=== PATIENT | male | born 1965 | race American Indian/Alaskan Native ===

== ENCOUNTER 2016-11-28 12:08 | Observation (INO) | payer MEDICAID, OTHER ==
[2016-11-28 12:11] VITALS: BMI 26.6
--- NOTE | 2016-11-28 12:26 | ED PDOC ---
Arrival/HPI - General Time Seen by Provider: 11/28/16 12:12 Historian: Patient, EMS - History of Present Illness Narrative History of Present Illness (Text): 11/28/16 12:12 Wesley Choi is a 51 year old male, who past medical history includes diabetes on insluin and hypertension, who presents to the emergency department complaining of a syncopal episode and hyperglycemia today. According to EMS, employees say that patient began to feel faint and possible pass out around 07: 30 this morning. Patient eventually became completely unresponsive. EMS was called and gave patient Narcan by BLS en route to hospital. Patient was also noted to be diaphoretic with a finger stick of 26 and was given an AMP of D50. Patient states that took his regular dose of insulin this morning, ate breakfast , and remembers going to work. However, patient does no recall any further events at work. At present, patient feels cold but denies any focal weakness, fevers, headaches, chest pain, or any other complaint at this time. Patient notes that [place] is from [place] of town. Time/Duration: 4-6 hours Symptom Onset: Gradual Symptom Course: Improving Severity Level: Mild Activities at Onset: Light Context: Work Past Medical History - Provider Review Nursing Documentation Reviewed: Yes - Cardiac Hx Hypertension: Yes - Psychiatric Hx Substance Use: No - Suicidal Assessment Feels Threatened In Home Enviroment: No Family/Social History - Physician Review Nursing Documentation Reviewed: Yes Family/Social History: No Known Family HX Smoking Status: Never Smoked Hx Alcohol Use: No Hx Substance Use: No Allergies/Home Meds Allergies/Adverse Reactions: Allergies Penicillins Allergy (Verified 11/28/16 12:10) RASH Home Medications: Home Meds Medication Instructions Recorded Confirmed Insulin Human (NPH)/Regular 0 units SC BID 11/28/16 11/28/16 [Novolin 70/30 (70/30 units/ml) 10 ml] Metoprolol Tartrate [Lopressor] 25 mg PO DAILY 11/28/16 11/28/16 Review of Systems - Review of Systems Constitutional: Other (hyperglycemia). absent: Fevers, Night Sweats Eyes: absent: Vision Changes ENT: absent: Hearing Changes Respiratory: absent: SOB Cardiovascular: Syncope. absent: Chest Pain Gastrointestinal: absent: Abdominal Pain Genitourinary Male: absent: Urinary Output Changes Musculoskeletal: absent: Back Pain, Neck Pain Skin: absent: Rash Neurological: absent: Headache Endocrine: absent: Diaphoresis Hemo/Lymphatic: absent: Adenopathy Psychiatric: absent: Anxiety Physical Exam Vital Signs Temp Pulse Resp BP Pulse Ox 11/28/16 16:08 93 H 16 149/75 98 11/28/16 14:57 98.4 F 89 16 125/69 98 11/28/16 14:00 97.7 F 107 H 21 159/98 H 95 11/28/16 12:13 97.7 F 11/28/16 12:09 95 F L 94 H 19 173/112 H 98 Temperature: Hypothermic Blood Pressure: Hypertensive Pulse: Tachycardic Respiratory Rate: Normal Appearance: Positive for: Ill-Appearing Pain Distress: None Mental Status: Positive for: Alert and Oriented X 3 Finger Stick Blood Glucose: 131 - Systems Exam Head: Present: Atraumatic, Normocephalic Pupils: Present: PERRL Conjunctiva: Present: Normal Mouth: Present: Moist Mucous Membranes Pharnyx: Present: Normal. No: ERYTHEMA, EXUDATE Neck: Present: Normal Range of Motion Respiratory/Chest: Present: Clear to Auscultation, Good Air Exchange. No: Respiratory Distress, Accessory Muscle Use Cardiovascular: Present: Regular Rate and Rhythm, Normal S1, S2. No: Murmurs Abdomen: Present: Normal Bowel Sounds. No: Tenderness, Distention, Peritoneal Signs Back: Present: Normal Inspection Upper Extremity: Present: Normal Inspection. No: Cyanosis, Edema Lower Extremity: Present: Normal Inspection. No: Edema Neurological: Present: GCS=15, CN II-XII Intact, Speech Normal Skin: Present: Warm, Normal Color, Diaphoretic. No: Rashes Psychiatric: Present: Alert, Oriented x 3, Normal Insight, Normal Concentration Medical Decision Making ED Course and Treatment: 11/28/16 12:12 Impression: 51 year old male complaining of a syncopal episode and hyperglycemia today. Differential Diagnosis included but are not limited to: Insulin overdose vs renal insufficiency Plan: -- EKG -- Chest X-ray -- Brain CT w/o contrast -- Labs -- Reassess and disposition Prior Visits: Notes and results from previous visits were reviewed. Patient last seen in the ED on 08/15/14 for dizziness and hypotension that day. Patient was discharged home. Progress Notes: EKG: Ordered, reviewed, and independently interpreted the EKG. Rate : 95 BPM Rhythm : NSR Interpretation : Normal intervals. Normal Brant. Non-specific T-wave abnormality. 11/28/16 18:25 Patient with noted history s/p hypoglycemic episode. He was seen observed here in the ED and initially maintained his glucose with eating but then stopped eating for about 2 hours and glucose went back down to 71 and he became lethargic. Will give additional amp of D50. Patient also notes that this is his third visit to an ER this week for hypoglycemia. Given multiple ED visits and recurrence of hypoglycemia here, will need observe further for refractory hypoglycemia. Spoke with Dr. Heredia who said to convey case to resident Harpal for night attending. - Lab Interpretations Lab Results: 11/28/16 12:47 11/28/16 12:47 Lab Results 11/28/16 16:05: Urine Color Yellow, Urine Appearance Clear, Urine pH 6.0, Ur Specific [place] 1.015, Urine Protein Negative, Urine Glucose (UA) 100 H, Urine Ketones Negative, Urine Blood Negative, Urine Nitrate Negative, Urine Bilirubin Negative, Urine Urobilinogen 0.2, Ur Leukocyte Esterase Negative 11/28/16 15:36: POC Glucose (mg/dL) 123 H 11/28/16 14:14: POC Glucose (mg/dL) 154 H 11/28/16 12:47: Sodium 140, Potassium 4.2, Chloride 103, Carbon Dioxide 29, Anion Gap 12, BUN 16, Creatinine 0.8, Est GFR ( Amer) > 60, Est GFR (Non- Af Amer) > 60, Random Glucose 93, Calcium 9.1, Magnesium 1.9, Total Bilirubin 0.4, AST 27, ALT 36, Alkaline Phosphatase 109, Lactate Dehydrogenase 649, Total Creatine Kinase 141, Troponin I < 0.01, Total Protein 7.8, Albumin 4.2, Globulin 3.6, Albumin/Globulin Ratio 1.2, Lipase 68 11/28/16 12:47: WBC 7.1, RBC 4.23, Hgb 12.3 L, Hct 35.6 L, MCV 84.2, MCH 29.1, MCHC 34.6, RDW 12.8, Plt Count 309, MPV 10.1, Gran % 73.1 H, Lymph % (Auto) 21.8 L, [place] % (Auto) 3.8, Eos % (Auto) 1.0 L, Baso % (Auto) 0.3, Gran # 5.22, Lymph # 1.6, [place] # 0.3, Eos # 0.1, Baso # 0.02 I have reviewed the lab results: Yes - RAD Interpretation Radiology Orders: 11/28/16 12:13 Brain [HEAD W/O CONTRAST] [CT] Stat CHEST TWO VIEWS (PA/LAT) [RAD] Stat - Medication Orders Current Medication Orders: Dextrose (Dextrose 50% Inj) 50 ml IVP STAT STA Stop: 11/28/16 18:24 - Scribe Statement The provider has reviewed the documentation as recorded by the John Brandt Provider Scribe Attestation: All medical record entries made by the Scribe were at my direction and personally dictated by me. I have reviewed the chart and agree that the record accurately reflects my personal performance of the history, physical exam, medical decision making, and the department course for this patient. I have also personally directed, reviewed, and agree with the discharge instructions and disposition. Disposition/Present on Arrival - Present on Arrival Any Indicators Present on Arrival: No - Disposition Have Diagnosis and Disposition been Completed?: Yes Diagnosis: Hypoglycemia Disposition: HOSPITALIZED Disposition Time: 18:15 Patient Plan: Observation, Telemetry Condition: FAIR
[2016-11-28 12:51] LABS: BASO # 0.02 K/mm3 (0.0-2.0); BASO % 0.3 % (0.0-3.0); EOS # 0.1 (0.0-0.7); GRAN # 5.22 (1.4-6.5); GRAN % 73.1 % (50.0-68.0); HEMOGLOBIN 12.3 gm/dL (14.0-18.0); LYMPH # 1.6 (1.2-3.4); LYMPH % 21.8 % (22.0-35.0); MEAN CELL VOLUME 84.2 fL (80.0-105.0); MEAN CORPUSCULAR HEMOGLOBIN 29.1 pg (25.0-35.0); MEAN CORPUSCULAR HGB CONC 34.6 g/dl (31.0-37.0); MEAN PLATELET VOLUME 10.1 fl (7.0-11.0); MONO # 0.3 (0.1-0.6); MONO % 3.8 % (1.0-6.0); PLATELET COUNT 309 10^3/uL (120.0-450.0); RBC 4.23 10^6/uL (3.5-6.1); RED CELL DISTRIBUTION WIDTH 12.8 % (11.5-14.5); WHITE BLOOD COUNT 7.1 10^3/ul (4.5-11.0)
[2016-11-28 13:01] LABS: ALB/GLOB RATIO 1.2 (1.1-1.8); ALBUMIN 4.2 g/dL (3.0-4.8); ALT/SGPT 36 U/L (7-56); AST/SGOT 27 U/L (15-59); BLOOD UREA NITROGEN 16 mg/dL (7-21); CALCIUM 9.1 mg/dL (8.4-10.5); GFR AFRICAN-AMERICAN > 60; GFR NON-AFRICAN AMERICAN > 60; LIPASE 68 U/L (23-300); MAGNESIUM 1.9 mg/dL (1.7-2.2)
[2016-11-28 13:14] LABS: TROPONIN I < 0.01 ng/mL
--- NOTE | 2016-11-28 13:48 | CT ---
PROCEDURE: CT HEAD WITHOUT CONTRAST. HISTORY: altms COMPARISON: None available. TECHNIQUE: Axial computed tomography images were obtained through the head/brain without intravenous contrast. Radiation dose: Total exam DLP = 690 mGy-cm. This CT exam was performed using one or more of the following dose reduction techniques: Automated exposure control, adjustment of the mA and/or kV according to patient size, and/or use of iterative reconstruction technique. FINDINGS: HEMORRHAGE: No intracranial hemorrhage. BRAIN: No mass effect or edema. The overall mullen and white-matter density above and below the tentorium appears within normal limits throughout, including through the brainstem. There is no suspicious extra-axial fluid collection identified. VENTRICLES: Unremarkable. No hydrocephalus. CALVARIUM: Unremarkable. PARANASAL SINUSES: Unremarkable as visualized. No significant inflammatory changes. MASTOID AIR CELLS: Unremarkable as visualized. No inflammatory changes. OTHER FINDINGS: None. IMPRESSION: Normal CT of the Head. Follow-up CT or MRI may be considered symptoms persist or worsen or as otherwise may be indicated.
--- NOTE | 2016-11-28 15:18 | RAD ---
HISTORY: hypoglycemia COMPARISON: No prior. TECHNIQUE: Chest PA and lateral FINDINGS: LUNGS: No active pulmonary disease. PLEURA: No significant pleural effusion identified. No pneumothorax apparent. CARDIOVASCULAR: Normal. OSSEOUS STRUCTURES: No significant abnormalities. VISUALIZED UPPER ABDOMEN: Normal. OTHER FINDINGS: None. IMPRESSION: No active disease.
[2016-11-28 16:26] LABS: URINE BILIRUBIN NEGATIVE (NEGATIVE); URINE BLOOD NEGATIVE (NEGATIVE); URINE GLUCOSE (UA) 100 mg/dL (NEGATIVE); URINE LEUKOCYTE ESTERASE NEGATIVE Leu/uL (NEGATIVE); URINE NITRATE NEGATIVE (NEGATIVE); URINE UROBILINOGEN 0.2 E.U./dL (<1 E.U./dL)
[2016-11-28 16:28] LABS: URINE APPEARANCE CLEAR (CLEAR); URINE COLOR YELLOW (YELLOW); URINE PROTEIN NEGATIVE mg/dL (<30 mg/dL)
[2016-11-28] MEDS ORDERED: Dextrose 50% SYRINGE Inj (50 ml) IVP STA (18:23)
--- NOTE | 2016-11-28 19:45 | CP.PCM.HP ---
<JOSE CARTER - Last Filed: 11/29/16 00:08> History of Present Illness - History of Present Illness History of Present Illness: CC: Syncope due to hypoglycemia Pt is 51 yo M with PMHx of HTN and DM presents with cc syncopal episode with a witnessed fall due to hypoglycemia. Pt states that he has been on a regimen of Novolog 70/30 30 units in the AM and 17 units in the PM for the last few months and is consistent, but has not followed up with a PMD due to recently moving here. Pt states he took his insulin as scheduled this morning around 4 am and ate breakfast, but might have eaten less than he normally does. He reports feeling diaphoretic and dizzy at work this morning around 10 am when the syncopal event happened. The pt lost consciousness and fell which was witnessed by his co-workers. They stated that he was foaming at the mouth. Pt reports 3 other instances in the past week where he got dizzy and felt as if he had low blood sugar, but did not lose consciousness. Pt was transported by EMS and was found to have a blood glucose of 26, in which he was given one amp of D50. Now in the ED, pt recieved another amp of D50, which borught his glucose to 154. Pt is currently c/o fatigue and diffuse body aches. Pt admits to numbness in his left foot, in which there is an ulcer on his left great toe. Pt denies paresthesia of the right foot. Pt denied CP, SOB, n/v/d, chills, BERNABE, or changes in vision. PMHx: DM, HTN Surg: Left cataract surgery FHx: DM, pancreatic CA All: Penicillin (Hives) SH: Denied EtOH, tobacco, or illicit drug use Medications: reviewed and as per chart Present on Admission - Present on Admission Any Indicators Present on Admission: No Review of Systems - Review of Systems All systems: reviewed and no additional remarkable complaints except (12 point ROS negative other than what is stated in HPI) Past Patient History - Past Social History Smoking Status: Never Smoked - CARDIAC Hx Hypertension: Yes - ENDOCRINE/METABOLIC Hx Endocrine Disorders: Yes Hx Diabetes Mellitus Type 1: Yes - PSYCHIATRIC Hx Substance Use: No - SURGICAL HISTORY Hx Surgeries: No Meds Allergies/Adverse Reactions: Allergies Allergy/AdvReac Type Severity Reaction Status Date / Time Penicillins Allergy RASH Verified 11/28/16 12:10 Physical Exam - Constitutional Appears: No Acute Distress Additional comments: sleepy, lethargic - Head Exam Head Exam: ATRAUMATIC, NORMOCEPHALIC - Eye Exam Eye Exam: EOMI, PERRL Pupil Exam: PERRL - ENT Exam ENT Exam: Mucous Membranes Moist - Neck Exam Neck exam: Positive for: Full Rom. Negative for: Lymphadenopathy, Tenderness, Thyromegaly - Respiratory Exam Respiratory Exam: Clear to Auscultation Bilateral. absent: Rales, Rhonchi, Wheezes - Cardiovascular Exam Cardiovascular Exam: Tachycardia, +S1, +S2. absent: Diastolic murmur, Gallop, Rubs, Systolic Murmur - GI/Abdominal Exam GI & Abdominal Exam: Guarding, Normal Bowel Sounds, Tenderness. absent: Distended, Rebound, Soft - Extremities Exam Extremities exam: Negative for: pedal edema, tenderness Additional comments: crusted ulcer noted on left distal portion of hallux - Neurological Exam Neurological exam: Alert, Motor Sensory Deficit, Oriented x3 Additional comments: decreased sensation left foot - Psychiatric Exam Psychiatric exam: Normal Affect, Normal Mood - Skin Skin Exam: Dry, Intact, Normal Color, Warm Results - Vital Signs Recent Vital Signs: Last Vital Signs Temp 98.4 F 11/28/16 14:57 Pulse 93 H 11/28/16 16:08 Resp 16 11/28/16 16:08 BP 149/75 11/28/16 16:08 Pulse Ox 98 11/28/16 16:08 - Labs Result Diagrams: 11/28/16 12:47 11/28/16 12:47 Assessment & Plan - Assessment and Plan (Free Text) Assessment: 51 yo M with PMHx of IDDM and HTN will be admitted for evaluation and treatment of syncopal event/seizure 2/2 hypoglycemia. 1. Hypoglycemia - Diffuse body aches likely due to seizure 2/2 hypoglycemia - Accucheck Q4H - Maintain glucose > 70 - Hold insulin until breakfast, decrease insulin dose to 20 u in AM and 14 u in PM with meals - Carb consistent diet 2. HTN - Cont lopressor 3. GI/DVT PPx - Protonix - SCDs Pt seen and discussed in detail with Dr. Bradley. <Erickson Bradley P - Last Filed: 11/29/16 06:19> Results - Vital Signs Recent Vital Signs: Last Vital Signs Temp 98.8 F 11/29/16 05:56 Pulse 85 11/29/16 05:56 Resp 18 11/29/16 05:56 BP 131/81 11/29/16 05:56 Pulse Ox 97 11/29/16 05:56 - Labs Result Diagrams: 11/28/16 12:47 11/28/16 12:47 Labs: Laboratory Results - last 24 hr 11/28/16 21:42 POC Glucose (mg/dL) 87 Attending/Attestation - Attestation I have personally seen and examined this patient.: Yes I have fully participated in the care of the patient.: Yes I have reviewed all pertinent clinical information: Yes Notes (Text): 11/29/16 06:15 Recent frequent episodes of hypoglycemia with this one with seizure, long time unchanged dose of 70/30 insulin 30-0-17, unchanged eating habits according to patient hence suspected hypoglycemia from slow gastric empting, reduced meals and increased unpredictable daily physical activity at work. Patient also has right great toe tip ulcer due to reduced sensation suggesting neuropathy. Plan Counselled about hypoglycemia Reduced dose of insulin 20-0-14 Patient to carry candy bar all the time Frequent monitoring IVF due to seizure, and fluid loss during sweating See plans for detail.
--- NOTE | 2016-11-28 20:55 | CARD ---
APPROVED REPORT EKG Measurement Heart [id number] <Conclusion> Normal sinus rhythm Nonspecific T wave abnormality Abnormal ECG
[2016-11-28] MEDS: Sodium Chloride 0.9% 1,000 ML IV SCH (21:33)
[2016-11-29] MEDS: Sodium Chloride 0.9% 1,000 ML IV SCH ×3 (04:03→21:11)
[2016-11-29] MEDS: Insulin Human NPH/Reg 70/30 Vial(3 ml) SC SCH (06:46)
[2016-11-29 07:44] LABS: HEMOGLOBIN 10.7 gm/dL (14.0-18.0); MEAN CORPUSCULAR HEMOGLOBIN 28.4 pg (25.0-35.0); MEAN CORPUSCULAR HGB CONC 34.2 g/dl (31.0-37.0); MEAN PLATELET VOLUME 9.8 fl (7.0-11.0); RBC 3.77 10^6/uL (3.5-6.1); RED CELL DISTRIBUTION WIDTH 12.6 % (11.5-14.5); WHITE BLOOD COUNT 13.5 10^3/ul (4.5-11.0)
[2016-11-29] MEDS ORDERED: Barium Sulfate Susp 2.1% w/v, 2.0% w/w 450 mL Bottle PO ONE (07:45)
[2016-11-29 08:01] LABS: ALB/GLOB RATIO 1.1 (1.1-1.8); ALBUMIN 3.3 g/dL (3.0-4.8); ALT/SGPT 30 U/L (7-56); AST/SGOT 21 U/L (15-59); BLOOD UREA NITROGEN 20 mg/dL (7-21); CALCIUM 8.5 mg/dL (8.4-10.5); GFR AFRICAN-AMERICAN > 60; GFR NON-AFRICAN AMERICAN > 60; MAGNESIUM 1.8 mg/dL (1.7-2.2)
[2016-11-29] MEDS: Insulin Reg-MEDIUM-Coverage SC SCH ×4 (08:42→22:11)
[2016-11-29] MEDS ORDERED: Sodium Chloride 0.9% 500 ML IV STA (11:57)
--- NOTE | 2016-11-29 12:45 | CT ---
PROCEDURE: CT Abdomen and Pelvis without intravenous contrast HISTORY: distended abdomen, r/o henia COMPARISON: None. TECHNIQUE: Technique. Contrast Dose: Radiation dose: Total exam DLP = 226 mGy-cm. This CT exam was performed using one or more of the following dose reduction techniques: Automated exposure control, adjustment of the mA and/or kV according to patient size, and/or use of iterative reconstruction technique. FINDINGS: LOWER THORAX: Bibasilar infiltrates are present. There is a small pericardial effusion. LIVER: Unremarkable. No gross lesion or ductal dilatation. GALLBLADDER AND BILE DUCTS: Unremarkable. PANCREAS: Unremarkable. No gross lesion or ductal dilatation. SPLEEN: Unremarkable. ADRENALS: Unremarkable. No mass. KIDNEYS AND URETERS: Dilatation of the proximal left ureter without evidence of obstructive calculus. No significant caliectasis. VASCULATURE: Unremarkable. No aortic aneurysm. BOWEL: Unremarkable. No obstruction. No gross mural thickening. APPENDIX: Unremarkable. Normal appendix. PERITONEUM: Unremarkable. No free fluid. No free air. LYMPH NODES: Unremarkable. No enlarged lymph nodes. BLADDER: Unremarkable. REPRODUCTIVE: Unremarkable. BONES: No acute fracture. OTHER FINDINGS: None. IMPRESSION: Dilatation of the proximal left ureter without evidence of obstructive calculus. No significant caliectasis.Bibasilar infiltrates are present. There is a small pericardial effusion.
[2016-11-29] MEDS ORDERED: Insulin Human NPH/Reg 70/30 Vial(3 ml) SC SCH (16:30)
[2016-11-29] MEDS ORDERED: Dextrose 50% SYRINGE Inj (50 ml) IVP STA (22:04)
[2016-11-30] MEDS: Sodium Chloride 0.9% 1,000 ML IV SCH (05:25)
[2016-11-30 06:21] VITALS: O2SAT 99
[2016-11-30 07:07] LABS: HEMOGLOBIN 10.7 gm/dL (14.0-18.0); MEAN CELL VOLUME 82.9 fL (80.0-105.0); MEAN CORPUSCULAR HEMOGLOBIN 28.6 pg (25.0-35.0); MEAN CORPUSCULAR HGB CONC 34.5 g/dl (31.0-37.0); MEAN PLATELET VOLUME 9.9 fl (7.0-11.0); RBC 3.74 10^6/uL (3.5-6.1); RED CELL DISTRIBUTION WIDTH 12.5 % (11.5-14.5); WHITE BLOOD COUNT 9.6 10^3/ul (4.5-11.0)
[2016-11-30 07:16] LABS: ALBUMIN 3.1 g/dL (3.0-4.8); ALT/SGPT 28 U/L (7-56); AST/SGOT 17 U/L (15-59); BLOOD UREA NITROGEN 14 mg/dL (7-21); CALCIUM 8.9 mg/dL (8.4-10.5); GFR AFRICAN-AMERICAN > 60; GFR NON-AFRICAN AMERICAN > 60
[2016-11-30] MEDS: Insulin Reg-MEDIUM-Coverage SC SCH (08:31)
[2016-11-30] MEDS: Insulin Human NPH/Reg 70/30 Vial(3 ml) SC SCH (08:31)
--- NOTE | 2016-11-30 11:04 | US ---
PROCEDURE: Ultrasound of the Bladder HISTORY: r/o urinary retention COMPARISON: Abdomen and pelvis CT 11/21/2016. TECHNIQUE: Sonographic evaluation of the bladder was performed. FINDINGS: Urinary bladder is distended that without significant mural thickening appreciated. No focal mural nodularity or urolithiasis is associated with the lumen of the urinary bladder. There is no demonstrated urinary bladder diverticulum. No free fluid in pelvis. Prevoid Volume: 464 cc. Post void residual: 129 cc. IMPRESSION: Nonfocal urinary bladder ultrasound examination. 28 percent postvoid residual as discussed above. Further clinical correlation advised.
[2016-11-30 12:22] VITALS: TEMP 98.3
[2016-11-30 13:05] VITALS: BP 136/85; PULSE 69; RESP 18
--- NOTE | 2016-11-30 17:36 | CP.PCM.DIS ---
<Andrew Bowser - Last Filed: 11/30/16 17:21> Provider - Provider Date of Admission: 11/28/16 18:21 Attending physician: Mae Heredia MD Time Spent in preparation of Discharge (in minutes): 45 Diagnosis - Discharge Diagnosis (1) Hypoglycemia Status: Resolved Priority: Low (2) Orthostatic hypotension Status: Resolved Priority: Low Hospital Course - Lab Results Lab Results: Most Recent Lab Values WBC 9.6 10^3/ul (4.5-11.0) D 11/30/16 06:30 RBC 3.74 10^6/uL (3.5-6.1) 11/30/16 06:30 Hgb 10.7 gm/dL (14.0-18.0) L 11/30/16 06:30 Hct 31.0 % (42.0-52.0) L 11/30/16 06:30 MCV 82.9 fL (80.0-105.0) 11/30/16 06:30 MCH 28.6 pg (25.0-35.0) 11/30/16 06:30 MCHC 34.5 g/dl (31.0-37.0) 11/30/16 06:30 RDW 12.5 % (11.5-14.5) 11/30/16 06:30 Plt Count 284 10^3/uL (120.0-450.0) 11/30/16 06:30 MPV 9.9 fl (7.0-11.0) 11/30/16 06:30 Gran % 73.1 % (50.0-68.0) H 11/28/16 12:47 Lymph % (Auto) 21.8 % (22.0-35.0) L 11/28/16 12:47 Benson % (Auto) 3.8 % (1.0-6.0) 11/28/16 12:47 Eos % (Auto) 1.0 % (1.5-5.0) L 11/28/16 12:47 Baso % (Auto) 0.3 % (0.0-3.0) 11/28/16 12:47 Gran # 5.22 (1.4-6.5) 11/28/16 12:47 Lymph # 1.6 (1.2-3.4) 11/28/16 12:47 Benson # 0.3 (0.1-0.6) 11/28/16 12:47 Eos # 0.1 (0.0-0.7) 11/28/16 12:47 Baso # 0.02 K/mm3 (0.0-2.0) 11/28/16 12:47 Sodium 136 mmol/L (132-148) 11/30/16 06:30 Potassium 4.8 mmol/L (3.6-5.0) 11/30/16 06:30 Chloride 103 mmol/L (98-107) 11/30/16 06:30 Carbon Dioxide 27 mmol/L (21-33) 11/30/16 06:30 Anion Gap 11 (10-20) 11/30/16 06:30 BUN 14 mg/dL (7-21) 11/30/16 06:30 Creatinine 0.8 mg/dL (0.5-1.4) 11/30/16 06:30 Est GFR ( Amer) > 60 11/30/16 06:30 Est GFR (Non-Af Amer) > 60 11/30/16 06:30 POC Glucose (mg/dL) 367 mg/dL (65-110) H 11/30/16 07:42 Random Glucose 297 mg/dL (70-110) H 11/30/16 06:30 Hemoglobin A1c 8.5 % (4.2-6.5) H 11/29/16 10:11 Calcium 8.9 mg/dL (8.4-10.5) 11/30/16 06:30 Phosphorus 3.2 mg/dL (2.5-4.5) 11/29/16 06:40 Magnesium 1.8 mg/dL (1.7-2.2) 11/29/16 06:40 Total Bilirubin 0.3 mg/dL (0.2-1.3) 11/30/16 06:30 AST 17 U/L (15-59) 11/30/16 06:30 ALT 28 U/L (7-56) 11/30/16 06:30 Alkaline Phosphatase 99 U/L (38-133) 11/30/16 06:30 Lactate Dehydrogenase 649 U/L (333-699) 11/28/16 12:47 Total Creatine Kinase 141 U/L (35-230) 11/28/16 12:47 Troponin I < 0.01 ng/mL 11/28/16 12:47 Total Protein 6.2 g/dL (5.8-8.3) 11/30/16 06:30 Albumin 3.1 g/dL (3.0-4.8) 11/30/16 06:30 Globulin 3.0 gm/dL 11/30/16 06:30 Albumin/Globulin Ratio 1.0 (1.1-1.8) L 11/30/16 06:30 Lipase 68 U/L (23-300) 11/28/16 12:47 Urine Color Yellow (YELLOW) 11/28/16 16:05 Urine Appearance Clear (CLEAR) 11/28/16 16:05 Urine pH 6.0 (4.7-8.0) 11/28/16 16:05 Ur Specific [place] 1.015 (1.005-1.035) 11/28/16 16:05 Urine Protein Negative mg/dL (<30 mg/dL) 11/28/16 16:05 Urine Glucose (UA) 100 mg/dL (NEGATIVE) H 11/28/16 16:05 Urine Ketones Negative mg/dL (NEGATIVE) 11/28/16 16:05 Urine Blood Negative (NEGATIVE) 11/28/16 16:05 Urine Nitrate Negative (NEGATIVE) 11/28/16 16:05 Urine Bilirubin Negative (NEGATIVE) 11/28/16 16:05 Urine Urobilinogen 0.2 E.U./dL (<1 E.U./dL) 11/28/16 16:05 Ur Leukocyte Esterase Negative Carina/uL (NEGATIVE) 11/28/16 16:05 - Hospital Course Hospital Course: 51 yo M with PMHx of HTN and DM presents with a syncopal episode secondary to hypoglycemia. After further questioning, pt was found to have eaten less during the morning and took his normal amount of insulin. Once glucose normalized, patient was placed on an insulin schedule of 20 in the AM and 14 in the PM, less than his normal daily dosages. Pt also became hypotensive and was kept overnight to monitor BP and glucose levels. Glucose and BP normalized and the patient was discharged the next morning. The patient was told to continue home metoprolol and change insulin to take 15 units in the AM and 9 in the PM. Pt was also given a Z pack for b/l infiltrates found on abdomen/pelvis CT which also showed dilated proximal left ureter without obstructive calculus along with small pericardial effusion. Pt received US of the bladder which showed nonfocal urinary exam, with 28% postvoid residual. Pt will follow up with Dr. Winston as an outpt along with PMD within 1 week. Discharge Exam - Head Exam Head Exam: ATRAUMATIC, NORMOCEPHALIC - ENT Exam ENT Exam: Mucous Membranes Moist - Respiratory Exam Respiratory Exam: NORMAL BREATHING PATTERN, UNREMARKABLE - Cardiovascular Exam Cardiovascular Exam: RRR, +S1, +S2 - GI/Abdominal Exam GI & Abdominal Exam: Normal Bowel Sounds, Soft. absent: Tenderness - Extremities Exam Extremities exam: normal inspection - Neurological Exam Neurological exam: Alert, CN II-XII Intact, Oriented x3 - Psychiatric Exam Psychiatric exam: Normal Affect, Normal Mood - Skin Skin Exam: Intact, Normal Color, Warm Discharge Plan - Discharge Medications Prescriptions: Azithromycin [Z-Jack] 250 mg PO DAILY #6 tab Insulin Human (NPH)/Regular [Novolin 70/30 (70/30 units/ml) 10 ml] 1 units SC BID #1 - Follow Up Plan Condition: FAIR Disposition: HOME/ ROUTINE Instructions: Diabetic Hypoglycemia (DC), Diabetic Hypoglycemia (GEN) Additional Instructions: A prescription for a glucometer and glucose test strips 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 Winston, Urologist, within 1 week Please return to hospital if symptoms reoccur or worsen <Tommy Irizarry - Last Filed: 11/30/16 21:14> Provider - Provider Date of Admission: 11/28/16 18:21 Attending physician: Mae Heredia MD Hospital Course - Lab Results Lab Results: Most Recent Lab Values WBC 9.6 10^3/ul (4.5-11.0) D 11/30/16 06:30 RBC 3.74 10^6/uL (3.5-6.1) 11/30/16 06:30 Hgb 10.7 gm/dL (14.0-18.0) L 11/30/16 06:30 Hct 31.0 % (42.0-52.0) L 11/30/16 06:30 MCV 82.9 fL (80.0-105.0) 11/30/16 06:30 MCH 28.6 pg (25.0-35.0) 11/30/16 06:30 MCHC 34.5 g/dl (31.0-37.0) 11/30/16 06:30 RDW 12.5 % (11.5-14.5) 11/30/16 06:30 Plt Count 284 10^3/uL (120.0-450.0) 11/30/16 06:30 MPV 9.9 fl (7.0-11.0) 11/30/16 06:30 Gran % 73.1 % (50.0-68.0) H 11/28/16 12:47 Lymph % (Auto) 21.8 % (22.0-35.0) L 11/28/16 12:47 Benson % (Auto) 3.8 % (1.0-6.0) 11/28/16 12:47 Eos % (Auto) 1.0 % (1.5-5.0) L 11/28/16 12:47 Baso % (Auto) 0.3 % (0.0-3.0) 11/28/16 12:47 Gran # 5.22 (1.4-6.5) 11/28/16 12:47 Lymph # 1.6 (1.2-3.4) 11/28/16 12:47 Benson # 0.3 (0.1-0.6) 11/28/16 12:47 Eos # 0.1 (0.0-0.7) 11/28/16 12:47 Baso # 0.02 K/mm3 (0.0-2.0) 11/28/16 12:47 Sodium 136 mmol/L (132-148) 11/30/16 06:30 Potassium 4.8 mmol/L (3.6-5.0) 11/30/16 06:30 Chloride 103 mmol/L (98-107) 11/30/16 06:30 Carbon Dioxide 27 mmol/L (21-33) 11/30/16 06:30 Anion Gap 11 (10-20) 11/30/16 06:30 BUN 14 mg/dL (7-21) 11/30/16 06:30 Creatinine 0.8 mg/dL (0.5-1.4) 11/30/16 06:30 Est GFR ( Amer) > 60 11/30/16 06:30 Est GFR (Non-Af Amer) > 60 11/30/16 06:30 POC Glucose (mg/dL) 367 mg/dL (65-110) H 11/30/16 07:42 Random Glucose 297 mg/dL (70-110) H 11/30/16 06:30 Hemoglobin A1c 8.5 % (4.2-6.5) H 11/29/16 10:11 Calcium 8.9 mg/dL (8.4-10.5) 11/30/16 06:30 Phosphorus 3.2 mg/dL (2.5-4.5) 11/29/16 06:40 Magnesium 1.8 mg/dL (1.7-2.2) 11/29/16 06:40 Total Bilirubin 0.3 mg/dL (0.2-1.3) 11/30/16 06:30 AST 17 U/L (15-59) 11/30/16 06:30 ALT 28 U/L (7-56) 11/30/16 06:30 Alkaline Phosphatase 99 U/L (38-133) 11/30/16 06:30 Lactate Dehydrogenase 649 U/L (333-699) 11/28/16 12:47 Total Creatine Kinase 141 U/L (35-230) 11/28/16 12:47 Troponin I < 0.01 ng/mL 11/28/16 12:47 Total Protein 6.2 g/dL (5.8-8.3) 11/30/16 06:30 Albumin 3.1 g/dL (3.0-4.8) 11/30/16 06:30 Globulin 3.0 gm/dL 11/30/16 06:30 Albumin/Globulin Ratio 1.0 (1.1-1.8) L 11/30/16 06:30 Lipase 68 U/L (23-300) 11/28/16 12:47 Urine Color Yellow (YELLOW) 11/28/16 16:05 Urine Appearance Clear (CLEAR) 11/28/16 16:05 Urine pH 6.0 (4.7-8.0) 11/28/16 16:05 Ur Specific [place] 1.015 (1.005-1.035) 11/28/16 16:05 Urine Protein Negative mg/dL (<30 mg/dL) 11/28/16 16:05 Urine Glucose (UA) 100 mg/dL (NEGATIVE) H 11/28/16 16:05 Urine Ketones Negative mg/dL (NEGATIVE) 11/28/16 16:05 Urine Blood Negative (NEGATIVE) 11/28/16 16:05 Urine Nitrate Negative (NEGATIVE) 11/28/16 16:05 Urine Bilirubin Negative (NEGATIVE) 11/28/16 16:05 Urine Urobilinogen 0.2 E.U./dL (<1 E.U./dL) 11/28/16 16:05 Ur Leukocyte Esterase Negative Carina/uL (NEGATIVE) 11/28/16 16:05 Attending/Attestation - Attestation I have personally seen and examined this patient.: Yes I have fully participated in the care of the patient.: Yes I have reviewed all pertinent clinical information, including history, physical exam and plan: Yes Notes (Text): 11/30/16 21:10 Patient seen and examined at bedside. vitals, labs, orders and notes reviewed. He is feeling better today and reports no new complaints. Discussed his diet, insulin regimen at home and he verbalized his recent move to the city and his inability to follow up with his PMD. Advised to follow up in the [facility] at [facility] if he so chooses in the interim.Also educated about checking his pre-meal CBG and titrating his insulin. Prescribed z-pack for bibasilar consolidation noted on imaging with mild leukocytosis. Outpatient follow up with advised although he doesn't report any any voiding problems or dysuria currently. Agree with the plan as outlined by the resident which patient clearly verbalized understanding and no further questions or concerns were voiced on discharge.
== END 2016-11-30 13:37 | disposition home or self-care (01) ==
LOC: ED 12:08 → ERH 18:21 → 2RSO 21:28
PROVIDERS: ADMIT Internal Medicine; ATTEND Internal Medicine
DX: E10.649 Type 1 diabetes mellitus with hypoglycemia without coma (principal); I95.1 Orthostatic hypotension; R55 Syncope and collapse; E10.621 Type 1 diabetes mellitus with foot ulcer; I10 Essential (primary) hypertension; Z79.4 Long term (current) use of insulin; Z88.0 Allergy status to penicillin; D72.829 Elevated white blood cell count, unspecified; L97.529 Non-pressure chronic ulcer of other part of left foot with unspecified severity; R56.9 Unspecified convulsions; Z79.899 Other long term (current) drug therapy; Z98.42 Cataract extraction status, left eye; R00.0 Tachycardia, unspecified; R40.2412 Glasgow coma scale score 13-15, at arrival to emergency department; Z83.3 Family history of diabetes mellitus; Z80.0 Family history of malignant neoplasm of digestive organs
CPT/HCPCS: 36415; 70450; 71020; 74176; 76857; 80053; 81003; 82550; 82948; 83036; 83615; 83690; 83735; 84100; 84484; 85025; 85027; 87040; 93005; 96374; 99285; C9113; G0378; J7040